=== PATIENT | male | born 2000 | race Caucasian/White ===

== ENCOUNTER → 2020-12-13 | Outpatient (CLI) | payer MEDICAID | LOC: COL.RAD 11:33 | DX: L72.0 Epidermal cyst (principal); I86.1 Scrotal varices ==

== ENCOUNTER → 2021-01-23 | Outpatient (CLI) | payer MEDICAID | LOC: COL.RAD 13:53 | DX: I86.1 Scrotal varices (principal); N50.3 Cyst of epididymis ==

== ENCOUNTER 2021-08-21 13:11 | Emergency (ER) | payer MEDICAID | END 2021-08-21 14:24 | disposition left against medical advice (07) | LOC: COL.ER 13:11 | DX: R69 Illness, unspecified (principal) ==